=== PATIENT | female | born 1950 | race Caucasian/White ===

== ENCOUNTER → 2017-01-25 | Outpatient (CLI) | payer OTHER, BC ==
[~2017-01-25] VITALS: Ht 157.5 cm; Wt 57.2 kg
[~2017-01-25] MED LIST: ACETAMINOPHEN325 M1 PO; AMLODIPINE BESY10 MG PO; ASPIRIN325 PO; BETA CAROT10000 UNIT PO; BYSTOLIC 5 MG5 M1; CALCIUM 600 +1 EAC1 PO; CARDIZEM CD240 MG PO; CARTIA XT240 M1 PO; CENTRUM SILVER1 EAC4 PO; CLONIDINE0.1 PO; CYCLOBENZAPRINE5 MG PO; DIOVAN320 MG PO; EDARBYCLOR 40-1 EAC1; EVOXAC30 MG; FOLIC ACID 40400 MCG PO; HYDROCODON-ACE1 EAC5 PO; HYDROCODONE-AP1 EAC6 PO; IRON325 PO; LEVOTHYROXINE0.05 MG PO; MEGA BIOTIN10000 MCG PO; MOBIC7.5 MG PO; NABUMETONE 500500 M1 PO; NEXIUM20 MG PO; NIACIN 500 MG500 M1 PO; PRENATAL TABLE1 EAC2 PO; REGLAN 10 MG TA10 MG; SELENIMIN200 MCG PO; STRESS B WITH1 EAC2 PO; TRAMADOL 50 MG50 MG PO; VITAMIN D-32000 UNIT PO; VITAMIN E1000 UNI2 PO; VITAMIN E400 UNIT PO; VITAMINC500 PO; WELLBUTRIN 75 M75 M1 PO; XANAX 0.25 MG0.25 MG PO; ZIAC 10/6.25 MG10 MG PO; ZIAC 5-6.25 MG1 EACH PO; ZINC50 M2 PO
--- NOTE | ~2017-01-25 | HPC ---
Formerly [facility] [address] [place] [address] PAIN MANAGEMENT CONSULTATION Name: TEAGAN MOORE [id number] Admission: 01/25/17 Attend Phys: Corby Pappas MD Discharge: Date of : 46 Report #: [id number] THIS REPORT FOR: //name// CC: Rhys Pappas DATE OF SERVICE: 01/25/2017 REASON FOR CONSULTATION: Followup visit for chronic left hip pain and low back pain. HISTORY OF PRESENT ILLNESS: The patient returns to pain clinic today in followup. Her pain scores 3-4 and she is doing better. She has been doing some exercises. She has tried tramadol, but we talked about some of the risks associated with its use in combination with even low dose Wellbutrin. Wellbutrin was not listed on her medication list originally. Pain complaint today is mostly in the low back radiating into bilateral buttocks. It is worse with movement, alleviated by sitting and using heat. REVIEW OF SYSTEMS: Positive for hypertension, ulcers, gastroesophageal reflux disease, night sweats, fatigue, weakness, frequent urination and headaches. PHYSICAL EXAMINATION: VITAL SIGNS: Blood pressure 156/79, heart rate 62, respirations 15 and BMI is 23. MUSCULOSKELETAL: Easily moves from sitting to standing position and ambulates with mild discomfort. Tenderness across the sacroiliac joints in the upper back. She has no antalgic features to her gait. IMPRESSION: 1. Chronic low back pain with spondylosis. 2. Degenerative joint disease, status post left hip replacement. 3. Systemic lupus erythematosus. PLAN: Follow up visit as needed. Continue with exercise program, minimize use of tramadol. Exercise may be beneficial for these symptoms of joint pain. She will decide in the future. By: [id number] Corby Pappas MD /nt
[2017-01-25 14:21] VITALS: BP 156/79
== END ==
LOC: PAIN 07:14
DX: M54.5 Low back pain (principal); M16.12 Unilateral primary osteoarthritis, left hip; Z96.642 Presence of left artificial hip joint; M32.9 Systemic lupus erythematosus, unspecified; I10 Essential (primary) hypertension; K21.9 Gastro-esophageal reflux disease without esophagitis

== ENCOUNTER 2017-03-31 01:42 | Emergency (ER) | payer OTHER, BC ==
[~2017-03-31] VITALS: Ht 157.5 cm; Wt 59.0 kg
[2017-03-31] MEDS ORDERED: XANAX 0.25 MG0.25 MG PO (02:12)
== END 2017-03-31 03:53 | disposition home or self-care (01) ==
LOC: ER 01:42
DX: M43.6 Torticollis (principal); M32.9 Systemic lupus erythematosus, unspecified; I10 Essential (primary) hypertension; M19.90 Unspecified osteoarthritis, unspecified site; I73.00 Raynaud's syndrome without gangrene; Z90.10 Acquired absence of unspecified breast and nipple; Z90.89 Acquired absence of other organs; Z91.040 Latex allergy status; Z91.041 Radiographic dye allergy status; Z88.0 Allergy status to penicillin; Z88.2 Allergy status to sulfonamides; Z88.8 Allergy status to other drugs, medicaments and biological substances

== ENCOUNTER → 2017-05-10 | Outpatient (CLI) | payer OTHER, BC ==
[~2017-05-10] VITALS: Ht 157.5 cm; Wt 58.1 kg
[2017-05-10 15:01] VITALS: BP 144/75
== END | disposition home or self-care (01) ==
LOC: PAIN 06:55
DX: M47.894 Other spondylosis, thoracic region (principal); M79.1 Myalgia; M79.7 Fibromyalgia; M32.9 Systemic lupus erythematosus, unspecified

== ENCOUNTER → 2017-07-12 | Outpatient (CLI) | payer OTHER, BC ==
[~2017-07-12] VITALS: Ht 157.5 cm; Wt 60.1 kg
--- NOTE | ~2017-07-12 | HPC ---
[facility] [address] [address] PAIN MANAGEMENT CONSULTATION Name: TEAGAN MOORE Room #: REG BA[facility]A Maia#: [id number] Admission: 07/12/17 Attend Phys: Corby Pappas MD Discharge: Date of : 46 Report #: [id number] THIS REPORT FOR: //name// CC: Andrei Pappas DATE OF SERVICE: 07/12/2017 REASON FOR VISIT: Followup visit for diffuse back pain. HISTORY OF PRESENT ILLNESS: The patient returns to the pain clinic today in followup. Continues to score her pain as a 3/10. She has been managed with tramadol and recently started on hydrocodone. She tolerates the hydrocodone with mild constipation. Today, she is here for renewal of overmedication. She continues to complain of pain that radiates also in her neck and into her shoulders, radiating up the back of her head. It is worse with flexion, extension, rotation and is likely spondylitic. PHYSICAL EXAMINATION: GENERAL: She is pleasant, alert and oriented. VITAL SIGNS: Blood pressure 157/71, heart rate 63 and BMI is 24. MUSCULOSKELETAL: Diffuse tenderness throughout the spine, particularly in the neck radiating up through her shoulders and into the occiput. IMPRESSION: 1. Cervical spondylosis. 2. Chronic mid back pain in the thoracic region with thoracic spondylosis as well. 3. Ischemic lupus erythematosus. 4. Fibromyalgia. PLAN: We will continue to manage with hydrocodone 5/325 one to two tablets daily and I have added nabumetone 500 mg b.i.d. with precautions regarding nonsteroidal anti-inflammatory drugs. Followup visit planned in the pain clinic in 1-2 months. By: [id number] Corby Pappas MD /nt
[2017-07-12 13:56] VITALS: BP 157/71
== END | disposition home or self-care (01) ==
LOC: PAIN 06:19
DX: M47.812 Spondylosis without myelopathy or radiculopathy, cervical region (principal); M47.814 Spondylosis without myelopathy or radiculopathy, thoracic region; L93.2 Other local lupus erythematosus; M79.7 Fibromyalgia

== ENCOUNTER → 2017-11-22 | Outpatient (CLI) | payer OTHER, BC | LOC: RAD 11:13 | DX: M19.041 Primary osteoarthritis, right hand (principal) ==

== ENCOUNTER → 2020-04-05 | Outpatient (CLI) | payer OTHER, BC | LOC: SJCVC 11:28 | PROVIDERS: ATTEND Internal Medicine | DX: I10 Essential (primary) hypertension (principal); E78.5 Hyperlipidemia, unspecified; M32.9 Systemic lupus erythematosus, unspecified; K21.9 Gastro-esophageal reflux disease without esophagitis; E03.9 Hypothyroidism, unspecified; Z90.710 Acquired absence of both cervix and uterus; Z79.899 Other long term (current) drug therapy ==

== ENCOUNTER → 2020-04-20 | Outpatient (CLI) | payer OTHER, BC | LOC: SJCVCIMAG 09:28 | PROVIDERS: ATTEND Internal Medicine | DX: I08.3 Combined rheumatic disorders of mitral, aortic and tricuspid valves (principal); I11.9 Hypertensive heart disease without heart failure; R00.1 Bradycardia, unspecified; E78.5 Hyperlipidemia, unspecified; Z79.899 Other long term (current) drug therapy ==

== ENCOUNTER → 2020-04-22 | Outpatient (CLI) | payer OTHER, BC | LOC: CAT 08:52 | PROVIDERS: ATTEND Internal Medicine | DX: R06.00 Dyspnea, unspecified (principal); I70.0 Atherosclerosis of aorta; I25.10 Atherosclerotic heart disease of native coronary artery without angina pectoris ==

== ENCOUNTER → 2021-07-08 | Outpatient (CLI) | payer OTHER, BC | LOC: SJCVC 14:24 | PROVIDERS: ATTEND Internal Medicine | DX: R00.1 Bradycardia, unspecified (principal); I10 Essential (primary) hypertension; E78.5 Hyperlipidemia, unspecified; M32.9 Systemic lupus erythematosus, unspecified; K21.9 Gastro-esophageal reflux disease without esophagitis; E03.9 Hypothyroidism, unspecified; Z79.82 Long term (current) use of aspirin; Z79.899 Other long term (current) drug therapy; Z88.0 Allergy status to penicillin; Z88.2 Allergy status to sulfonamides ==